=== PATIENT | female | born 1980 | race Two or more races ===

== ENCOUNTER 2018-03-29 20:01 | Emergency (ER) | payer MEDICAID ==
[~2018-03-29] VITALS: Ht 167.6 cm; Wt 77.8 kg
[~2018-03-29 20:01] MED LIST: PROC5TAB56 PO; SUMA25TA35 PO
[2018-03-29 20:20] VITALS: BP 133/71
[2018-03-29] MEDS ORDERED: cyclobenzaprine 10mg tablet PO ONE (22:00)
[2018-03-29] MEDS ORDERED: ibuprofen tablet 400 MG TABLET PO ONE (22:00)
[2018-03-29] MEDS ORDERED: IBUP-1984 PO (22:04)
== END 2018-03-29 22:52 | disposition home or self-care (01) ==
LOC: ER 20:01
DX: S16.1XXA Strain of muscle, fascia and tendon at neck level, initial encounter (principal); Z79.899 Other long term (current) drug therapy; V49.49XA Driver injured in collision with other motor vehicles in traffic accident, initial encounter; Y93.89 Activity, other specified; Y92.488 Other paved roadways as the place of occurrence of the external cause; Y99.8 Other external cause status
CPT/HCPCS: 99283

== ENCOUNTER 2023-01-20 02:35 | Emergency (ER) | payer MEDICAID ==
[~2023-01-20] VITALS: Ht 157.5 cm; Wt 67.0 kg
[2023-01-20 02:53] VITALS: TEMP 99.1
[2023-01-20] MEDS ORDERED: normal saline 1000ml 1,000 ML IV ONE (03:05)
[2023-01-20 03:52] LABS: BASOPHILS % (AUTO) 0.4 % (0-1); EOSINOPHILS # (AUTO) 0.2 X10'3 (0-0.9); EOSINOPHILS % (AUTO) 1.8 % (0-6); HEMATOCRIT 40.4 % (35.0-45.0); HEMOGLOBIN 13.4 g/dl (12.0-16.0); LYMPHOCYTES # (AUTO) 1.3 X10'3 (1.1-4.8); LYMPHOCYTES % (AUTO) 13.8 % (21-51); MEAN CORPUSCULAR HEMOGLOBIN 29.9 PG (27.0-31.0); MEAN CORPUSCULAR HGB CONC 33.3 g/dL (33.0-36.5); MEAN CORPUSCULAR VOLUME 89.7 FL (78-98); MEAN PLATELET VOLUME 7.3 FL (7.4-10.4); MONOCYTES # (AUTO) 0.5 X10'3 (0-0.9); MONOCYTES % (AUTO) 5.9 % (2-12); NEUTROPHILS # (AUTO) 7.2 X10'3 (1.8-7.7); NEUTROPHILS % (AUTO) 78.1 % (42-75); PLATELET COUNT 311 X10'3 (140-440); RED CELL DISTRIBUTION WIDTH 14.7 % (11.5-14.5); WHITE BLOOD COUNT 9.2 X10'3 (4.5-11.0)
[2023-01-20 04:22] LABS: ALANINE AMINOTRANSFERASE 14 U/L (12-78); ALBUMIN 3.2 G/DL (3.4-5.0); ALBUMIN/GLOBULIN RATIO 0.8 (1.1-1.5); ALKALINE PHOSPHATASE 83 IU/L (46-116); ANION GAP 11 (8-16); ASPARTATE AMINO TRANSFERASE 11 U/L (10-37); BILIRUBIN,TOTAL 0.4 MG/DL (0.1-1.0); BLOOD UREA NITROGEN 10 MG/DL (7-18); BUN/CREATININE RATIO 17.5 (10.0-20.0); CALCIUM 8.5 MG/DL (8.5-10.1); CHLORIDE 100 MMOL/L (99-107); CREATININE 0.57 MG/DL (0.40-0.90); GLUCOSE 218 MG/DL (70-104); POTASSIUM 3.1 MMOL/L (3.5-5.1); SODIUM 134 MMOL/L (135-145); TOTAL PROTEIN 7.4 G/DL (6.4-8.2); eCRCL 103 ML/MIN; eGFR > 90 ML/MIN
[2023-01-20 04:46] LABS: BETA HCG,QUANTITATIVE 6306 mIU/ml
[2023-01-20 05:10] VITALS: BP 102/64; PULSE 89; O2SAT 99
[2023-01-20] MEDS ORDERED: ondansetron 4mg rapidly disintigrating tab PO ONE (05:15)
[2023-01-20] MEDS ORDERED: HYDROcodone/acetaminophen 5mg/325mg tablet PO ONE (05:15)
[2023-01-20] MEDS ORDERED: ketorolac trometh. 30mg/ml inj. IV ONE (05:15)
[2023-01-20] MEDS ORDERED: acetaminophen 325mg tablet PO ONE (05:15)
[2023-01-20 05:26] VITALS: RESP 18
== END 2023-01-20 06:09 | disposition home or self-care (01) ==
LOC: ER 02:35
DX: O03.9 Complete or unspecified spontaneous abortion without complication (principal); Z3A.12 12 weeks gestation of pregnancy; Z79.899 Other long term (current) drug therapy
CPT/HCPCS: 36415; 76801; 80053; 84702; 85025; 86900; 86901; 96361; 96374; 99285; J1885; J7030

== ENCOUNTER 2023-08-04 00:34 | Emergency (ER) | payer SELFPAY ==
[~2023-08-04] VITALS: Ht 160 cm; Wt 69.3 kg
[2023-08-04 00:38] VITALS: BP 133/81; PULSE 102; RESP 16; TEMP 98.1; O2SAT 98
[2023-08-04 01:35] LABS: BILIRUBIN,URINE NEGATIVE (Neg); CLARITY,URINE SLIGHTLY CLOUDY (Clear); COLOR,URINE YELLOW (Yellow); GLUCOSE, URINE >=1000 mg/dl (Neg); KETONES,URINE NEGATIVE (Neg); LEUKOCYTE ESTERASE ,URINE NEGATIVE (Neg); OCCULT BLOOD,URINE NEGATIVE (Neg); PROTEIN,URINE NEGATIVE (Neg); UROBILINOGEN,URINE 0.2 E.U/dL (0.2-1.0)
[2023-08-04 01:36] LABS: NITRITES, URINE POSITIVE (Neg); UA COLLECTION TYPE CLN CATCH MIDSTREAM
[2023-08-04 01:55] LABS: RBC,URINE NONE SEEN /HPF (0-2)
[2023-08-04 01:56] LABS: BACTERIA,URINE 4+ /HPF (Neg); SQUAMOUS EPITHELIAL CELL,UR MODERATE /LPF (FEW)
== END 2023-08-04 03:45 | disposition left against medical advice (07) ==
LOC: ER 00:35
DX: O26.899 Other specified pregnancy related conditions, unspecified trimester (principal); M54.50 Low back pain, unspecified; R10.9 Unspecified abdominal pain; Z53.21 Procedure and treatment not carried out due to patient leaving prior to being seen by health care provider; Z3A.00 Weeks of gestation of pregnancy not specified
CPT/HCPCS: 36415; 81001; 84702; 87077; 87088; 87186